=== PATIENT | male | born 1995 | race Two or more races ===

== ENCOUNTER 2024-11-12 07:10 | Day surgery (SDC) | payer MEDICAID, SELFPAY ==
[2024-11-08 06:45] VITALS: BMI 23.2
[2024-11-08 07:25] LABS: Collection Type, Urine Clean Catch; Squamous Epithelial Cell,Urine 0 /hpf (0-5)
[2024-11-08 09:02] LABS: Basophils % (Auto) 0 % (0-2.5); Eosinophils # (Auto) 0.1 Thou/mm3 (0.0-0.5); Eosinophils % (Auto) 1 % (0-10); Hemoglobin 17.1 g/dL (13.5-16.0); Immature Granulocytes % (Auto) 0 % (0-0); Immature Granulocytes Auto 0.02 Thou/mm3 (0.00-0.00); Lymphocytes # (Auto) 2.2 Thou/mm3 (1.0-4.8); Lymphocytes % (Auto) 32 % (10-50); Mean Corpuscular HGB Conc 35.6 g/dl (31.0-37.0); Mean Corpuscular Hemoglobin 30.4 pg (25.0-35.0); Mean Corpuscular Volume 85 fL (80-100); Monocytes # (Auto) 0.5 Thou/mm3 (0.0-0.8); Monocytes % (Auto) 8 % (0-12); Neutrophils # (Auto) 3.9 Thou/mm3 (1.8-7.7); Neutrophils % (Auto) 58 % (37-80); Nucleated Red Blood Cell % 0 /100 WBC (0); Platelet Count 355 Thou/mm3 (140-440); RDW Standard Deviation 39.4 fL (35.1-43.9); Red Blood Count 5.62 Miln/mm3 (4.50-5.90); White Blood Count 6.7 Thou/mm3 (3.8-10.6)
[2024-11-08 09:05] LABS: Bilirubin,Urine Negative (Negative); Blood,Urine Negative (Negative); Clarity,Urine Clear (Clear/Hazy); Color,Urine Colorless (Lt Yel-Yel); Glucose, Urine Negative (Negative); Ketones,Urine Negative (Negative); Leukocyte Esterase,Urine Negative (Negative); Nitrite,Urine Negative (Negative); PH,Urine 7.5 (5.0-7.0); Protein,Urine Negative (Neg - Trace); RBC,Urine 1 /hpf (0-3); Specific Gravity,Urine 1.012 (1.001-1.035); Urobilinogen,Urine Negative mg/dL (0.0-1.0); WBC,Urine 2 /hpf (0-5)
[2024-11-08 09:09] LABS: Anion Gap 8 (7-16); BUN/Creatinine Ratio 9 Ratio (12-20); Blood Urea Nitrogen 9 mg/dL (9-23); Chloride 105 mMol/L (98-107); Glucose 103 mg/dL (74-106); Osmolality,Calculated 285 (275-295); Potassium 4.1 mMol/L (3.4-5.1); Sodium 144 mMol/L (136-145); eGFR > 60 See Note
--- NOTE | 2024-11-11 11:59 | ESHP_ITS ---
RE: JAKE FRAGA : 1995 DATE OF ADMISSION: 11/12/2024 HISTORY OF PRESENT ILLNESS: The patient is a 29-year-old gentleman who was referred to me. 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 Ultrasound shows no blood to the right testis. The patient is complaining of the pain. The patient did not have any surgery for this twisted right testis in 2014. PAST MEDICAL HISTORY: There is no history of diabetes mellitus. No history of hypertension. PAST SURGICAL HISTORY: None. SOCIAL HISTORY: The patient has no children. ALLERGIES: NONE KNOWN. MEDICATIONS: None. PHYSICAL EXAMINATION: HEENT: Normal. NECK: Supple. LUNGS: Clear. CARDIOVASCULAR: Heart sounds are normal. ABDOMEN: Soft without any organomegaly. No guarding. No rigidity. EXTREMITIES: Normal. GENITOURINARY: Phallus is normal. The right testis is atrophic, about 1 cm in size, nontender. Left testis is down in the scrotum and is normal in size. IMPRESSION: Twisted right testis without any blood flow and having pain on the right side. PLAN: Right orchiectomy. The patient wishes to have the right orchiectomy done. Planned procedure risks and complications have been discussed with the patient. The patient has understood them and agreed to proceed DT: 11:10:31 TT: 11:35:00 Ref: [id number] - TID: [id number]
[2024-11-12] VITALS (7 sets, daily range): BP systolic 96–131; BP diastolic 52–80; PULSE 63–89; RESP 12–20; TEMP 36.8–37.2; O2SAT 98–100; BMI 21.7
--- NOTE | 2024-11-12 08:40 | CHAP ---
Visited with patient, who was very nervous. I gave him some assurance and comfort and prayed with him.
--- NOTE | 2024-11-12 10:45 | SUR.PHASEI ---
1045 Patient arrived to recovery resting comfortably in [facility], on oxygen 2L via nasal cannula, breathing unlabored, vital signs stable, denies pain, dressing intact to right groin; gabbi, adaptic, medipore tape, no bleeding noted, denies nausea, report received from [place] [facility] and Dr. Borden/Rachid SRNA
--- NOTE | 2024-11-12 12:17 | SUR.PHASEII ---
patient blood pressure continues to be elevated 185/101 after 3 doses of blood pressure medication, Dr. Borden states he's ok with the blood pressure this is patient baseline, no new order, will continue to monitor patient
--- NOTE | 2024-11-12 17:42 | ESOP_ITS ---
RE: JAKE FRAGA : 1995 DATE OF OPERATION: 11/12/2024 PREOPERATIVE DIAGNOSIS: Right testicular pain. Atrophic right testis. POSTOPERATIVE DIAGNOSIS: Right testicular pain. Atrophic right testis. PROCEDURE PERFORMED: Right inguinal orchiectomy. ANESTHESIA: General by Dr. Borden. INDICATION: The patient is a 29-year-old male who had a right testicular torsion in the past and had some surgery done. The patient has a very small atrophic right testis, which is quite high in his scrotum, complaining of pain. The patient in view of this was scheduled to have right orchiectomy from the inguinal approach. He has atrophic right testis causing pain. Planned procedure, risks, and complications have been discussed with the patient. The patient understood them and agreed to proceed. DESCRIPTION OF PROCEDURE: After the patient was brought to the operating table under adequate general anesthesia in supine position, parts were prepped and draped in the usual fashion. Right inguinal incision was then made over the inguinal canal. The external oblique aponeurosis was then opened in the direction of the incision opening the external ring. The spermatic cord structures were isolated and were swung on a quarter-inch Sera drain. The right testis appeared to be very small at the end of the vas deferens. Right testis with spermatic cord structures were removed after clamping the cord structures at the internal drain and removing the cord structures with the testis. Cord structures were ligated with 2-0 chromic catgut sutures. Complete hemostasis was obtained. The wound was closed first closing external oblique aponeurosis with continuous sutures of 3-0 Vicryl sutures. Subcutaneous tissue was closed with continuous sutures of 3-0 chromic gut. Skin was closed with gabbi. Local anesthetic was injected into the wound for the relief of postoperative pain. Sterile dressing was then applied. The patient was then transferred to the recovery room in satisfactory condition having tolerated the entire procedure well. Sponge count and needle count at the end of the procedure was found to be correct. Estimated blood loss was approximately 5 mL. DT: 11:03:31 TT: 17:41:00 Ref: [id number] - TID: [id number]
== END 2024-11-12 11:45 | disposition home or self-care (01) ==
PROVIDERS: PCP Family Medicine; Referring Provider Surgery; Visit Provider Surgery
PROC: (CPT 54520; principal; 2024-11-12 09:45)
DX: N50.0 Atrophy of testis (principal)
CPT/HCPCS: 54520; 36415; 80048; 81001; 85025; A4217; A4649; J0131; J0690; J1171; J2250; J2704; J2765; J3010; L8330; A9270